=== PATIENT | female | born 1960 | race Hispanic/Latino ===

== ENCOUNTER 2017-06-24 10:33 | Inpatient (IN) | payer OTHER ==
[2017-06-24] MEDS ORDERED: Ondansetron HCl/PF 4 MG/2 ML Vial ONE (11:00)
--- NOTE | 2017-06-24 11:16 | RAD ---
SINGLE VIEW OF THE CHEST: COMPARISON: 10/19/14. HISTORY: Substernal chest pain with radiation to the left jaw. FINDINGS: Single view of the chest shows a normal sized cardiomediastinal silhouette. There is no evidence of consolidation, mass, or pleural effusion. The bones are unremarkable. IMPRESSION: No evidence of acute cardiopulmonary disease. POS: [facility]
[2017-06-24 11:34] LABS: #Eosinphils 0.1 thou/uL (0.0-0.7); #Lymphocytes 2.7 thou/uL (1.20-3.40); #Monocytes 0.4 thou/uL (0.11-0.59); #Neutrophils 3.2 thou/uL (1.40-6.50); %Basophils 0.7 % (0.0-1.0); %Eosinophils 1.2 % (0.0-10.0); %Lymphocytes 42.7 % (21.0-51.0); %Monocytes 5.7 % (0.0-10.0); Hematocrit 35.3 % (36.0-47.0); Red Blood Cell (RBC) Count 4.06 mill/uL (4.20-5.40); White Blood Cell (WBC) Count 6.4 thou/uL (4.8-10.8)
[2017-06-24 11:58] LABS: Troponin I Less than 0.010 ng/mL (< 0.028)
[2017-06-24 12:23] LABS: ALT (SGPT) 17 U/L (8-55); AST (SGOT) 21 U/L (5-34); Alkaline Phosphatase 95 U/L (40-150); Anion Gap 13 mmol/L (10-20); BUN (Urea Nitrogen) 16 mg/dL (9.8-20.1); Bilirubin, Total 0.2 mg/dL (0.2-1.2); CK (CPK) 177 U/L (29-168); Calc. Creatinine Clearance 0 mL/min (70-130); Calcium 8.9 mg/dL (7.8-10.44); Carbon Dioxide 23 mmol/L (22-29); Chloride 102 mmol/L (98-107); Estimated GFR-MDRD 85; Globulin 3.1 g/dL (2.4-3.5); Protein, Total 6.7 g/dL (6.0-8.3)
[2017-06-24 14:47] LABS: Troponin I Less than 0.010 ng/mL (< 0.028)
[2017-06-24] MEDS ORDERED: Enoxaparin Sodium 30 MG/0.3 ML SYRINGE ONE (15:02)
[2017-06-24] MEDS ORDERED: Enoxaparin Sodium 100 MG/ML SYRINGE ONE (15:02)
[2017-06-24] MEDS ORDERED: Nitroglycerin 2% Ointment 1 INCH/1 GM Packet ONE (15:05)
[2017-06-24] MEDS ORDERED: Dextrose 50% Abboject 50 ML SYRINGE SLOW IVP PRN (16:00)
[2017-06-24] MEDS ORDERED: Dextrose 5% in Water 1,000 ML IV PRN (16:00)
[2017-06-24] MEDS ORDERED: Nitroglycerin 0.4 MG TAB (25 Tab Bottle) SL PRN (16:00)
[2017-06-24] MEDS ORDERED: HumaLOG 300 UNITS/3 ML VIAL SC PRN (16:00)
[2017-06-24 16:03] VITALS: BMI 39.4
[2017-06-24 16:24] LABS: Hemoglobin A1c 8.8 % (4.0-6.0)
[2017-06-24 16:40] LABS: Magnesium 1.8 mg/dL (1.6-2.6)
[2017-06-24] MEDS: Sodium Chloride 0.9% 1,000 ML IV SCH (18:05)
[2017-06-24 18:15] LABS: Troponin I 0.011 ng/mL (< 0.028)
[2017-06-24] MEDS: Atorvastatin Calcium 40 MG TAB PO SCH (20:33)
[2017-06-24] MEDS: Enoxaparin Sodium 120 MG/0.8 ML SYRINGE SC SCH (20:49)
--- NOTE | 2017-06-24 21:37 | HP-2 ---
DATE: 06/24/2017 CODE STATUS: FULL. PRIMARY CARE PHYSICIAN: Liliana barrera. ATTENDING: Dr. Alfie Smith PGY1: Dr. Mauri Coulter CHIEF COMPLAINT: Chest pain. HISTORY OF PRESENT ILLNESS: A 57-year-old female who presents with chest pain that started around 5:30 this morning. The pain is in the middle of her chest and is substernal. She admits the pain radiated to her jaw and shoulder. She states that nitro helped this pain. She had cold sweats, shortness of breath and was awakened by this pain this morning. She had a similar episode in 2014 where she underwent cardiac studies then. She denied any numbness or tingling during this time. She denies any nausea, vomiting, diarrhea. She does admit to lightheadedness, but no loss of consciousness. She rates the pain as a 6/10 , constant and sharp in nature. She also notes some diaphoresis. In the ER, she was given nitro x3 and an aspirin 81 mg. PAST MEDICAL HISTORY: Significant for coronary artery disease, diabetes mellitus type 2, hypertension, hyperlipidemia, osteoarthritis. She had a last stress test in 2006 and an AL without stent placement in 1999. PAST SURGICAL HISTORY: Significant for cholecystectomy and angioplasty and debridement of her left hip. ALLERGIES: No known drug allergies. MEDICATIONS: 1. Metformin 1000 mg b.i.d. 2. Glipizide 10 mg. 3. Meloxicam 15 mg. 4. Hydrochlorothiazide 25 mg. 5. Lisinopril 20 mg. 6. Insulin NPH 35 units a.m. and then sliding scale in the evening. 7. Atorvastatin 40 mg. FAMILY HISTORY: Significant for her mother and her brother having MIs in her 70s and 50s respectively. SOCIAL HISTORY: She is a former tobacco smoker. She quit over 10 years ago and said she used social use of tobacco. She denied alcohol use or drug use. 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 REVIEW OF SYSTEMS: General: She denies any fevers or chills. ENT: Denies any nasal congestion, rhinorrhea, or sore throat. Respiratory: She denies cough or congestion. She does admit to shortness of breath. Cardiovascular: She does admit to chest pain. Denies any palpitations. Denies any edema. Gastrointestinal: She denies nausea, vomiting, diarrhea. Genitourinary: Denies incontinence or dysuria. Skin: She does admit to a rash on her right knee. Neurologic: She does admit to weakness. She denies numbness. Psychiatric: She denies anxiety or depression. PHYSICAL EXAMINATION: VITAL SIGNS: Blood pressure 107/79, pulse 80, respiration is 18, temperature max 98.6, pulse oximetry was 99% on room air. Current weight 113 kilograms. GENERAL: She is alert and oriented x4. She is appropriately interactive. EYES: PERRLA. ENT: Oropharynx within normal limits. CARDIOVASCULAR: Regular rate and rhythm without murmur. Radial and pedal pulses were equal and strong bilaterally. RESPIRATORY: Normal effort, no retractions, and clear lungs to auscultation bilaterally. SKIN: She does note she was diaphoretic. She did have a right knee and had some like annular lesions of her right knee area. ABDOMEN: Soft, nontender. Bowel sounds were present x4. No masses or distention. EXTREMITIES: No clubbing. No edema. MUSCULOSKELETAL: She did have tenderness lateral to her sternum on the left side. NEUROLOGIC: She did not have any focal neurologic deficits. Cranial nerves II- XII were grossly intact. GCS was 15. PSYCHIATRIC: Appropriate. LABORATORY DATA: She had a white blood cell count of 6.4, platelet count 223, hemoglobin of 11.6, hematocrit 35.3, MCV 86.9, percent neutrophils 49.7. CK 177 , CK-MB 3.7, troponin is less than 0.01. Sodium 134, potassium 4.3, chloride 107, bicarb 23, BUN 16, creatinine 0.71, glucose 267, calcium 8.9, total protein 6.7, albumin 3.6, total bilirubin 0.2, AST 21, ALT 17, alkaline phosphatase 95. EKG showed a right bundle branch block that was old, also normal sinus rhythm. Chest x-ray showed nothing acute. ASSESSMENT AND PLAN: We have a 57-year-old female that presents with a history of coronary artery disease, diabetes mellitus type 2, hypertension, hyperlipidemia, osteoarthritis, presents with: 1. Unstable angina. She had a HEART score of 4-5. We are going to order a BNP , TSH. We are going to trend her troponins. We will get a phosphate, magnesium , hemoglobin A1c, cardiac stress test, fasting lipid panel, therapeutic Lovenox , and a Cardiology consult. We will consider an echo because of history and to be as complete as possible. 2. Coronary artery disease. We will continue her statin and consider a beta yoshi. 3. Hypertension. Continue lisinopril. 4. Diabetes mellitus. We will get a hemoglobin A1c and continue her insulin, glipizide and metformin. 5. Hyperlipidemia. Continue statin. 6. Osteoarthritis. Continue meloxicam. DISPOSITION: Admit to tele inpatient greater than 2 midnights. Symptomatic medications will be provided. History and physical exam as well as management was discussed with Dr. Smith. Attending addendum: Seen and examined and maria portions of the H&P repeated. I have discussed the patient with the medicine team and agree with their A&P. For any addendum please see my dictated H&P. MTDD
--- NOTE | 2017-06-24 21:40 | HP ---
CHIEF COMPLAINT: Chest pain. HISTORY OF PRESENT ILLNESS: This is a 57-year-old female with a past history of coronary artery disease, hypertension, hyperlipidemia, diabetes, who presented with acute onset of chest pain that was left-sided, substernal, radiated to her left arm and neck with associated diaphoresis, worsening with exertion, better with rest and nitroglycerin and no associated nausea, vomiting. She described as severe, 10/10, initially that has improved after nitroglycerin here. This woke her from sleep. She has a history of feeling this way during an NV that she had in 2000, at which time she thinks she had a catheterization but does not really remember. She also has a history of catheterization in 2004 and 2006 per history I was able to obtain. Most recently seen here in 2014 where she had chest pain that was slightly different than what she described today with a negative Lexiscan at that time. REVIEW OF SYSTEMS: Constitutional: No fever or chills. Eyes: No pain or decreased acuity. Ears, Nose, Mouth, and Throat: No oral lesions, sore throat , decreased hearing. Cardiovascular: See HPI. Respiratory: No cough or congestion. Gastrointestinal: No nausea, vomiting, diarrhea, or constipation. Genitourinary: No dysuria or urgency. Musculoskeletal: No arthralgias or myalgias. Skin: Without rash or wound. Neurologic: Denies numbness, tingling, or weakness. Psychiatric: Denies depression or anxiety. Hematologic : Denies easy bruising or bleeding. PAST MEDICAL HISTORY: Positive for diabetes, hypertension, hyperlipidemia, coronary artery disease, and morbid obesity. PAST SURGICAL HISTORY: Cholecystectomy, , and coronary angiography x2. ALLERGIES: No known drug allergies. MEDICATIONS: Reviewed in detail in the resident's note. SOCIAL HISTORY: Denies tobacco, ethanol, or drug abuse but has a remote history of tobacco abuse over 10 years ago. FAMILY HISTORY: Positive for coronary artery disease with positive for less than 55 in a male relative. PHYSICAL EXAMINATION: VITAL SIGNS: T-max 98.3, pulse 95, BP 129/65, respirations 16, O2 sat 97%. GENERAL: The patient appears slightly uncomfortable. Well-developed, well- nourished, obese. HEENT: EYES: Without icterus or injection. ENT: No visible oral lesions. Moist mucous membranes. Pinna is normal. Nares patent. CARDIAC: Regular rate and rhythm without murmur, gallops, or rubs. Equal pulses bilaterally for me. No reproducible chest wall tenderness. No edema. RESPIRATORY: Clear to auscultation without wheezes, rales, or rhonchi. GASTROINTESTINAL: Bowel sounds positive. Nontender to palpation. Obese. GENITOURINARY: Deferred. MUSCULOSKELETAL: Without deformity or contracture. Full range of motion. SKIN: Without obvious wound or rash. NEUROLOGIC: Alert. Cranial nerves II through XII were intact and gross symmetric. Motor is 5/5 in all 4 extremities. Sensation is intact to light touch. PSYCHIATRIC: She is alert and oriented x3. Mood and affect appropriate for current medical condition. LABORATORY DATA: Sodium 134, potassium 4.3, chloride 102, bicarbonate 23, BUN 16, creatinine 0.75, glucose 267, total bilirubin 0.2, AST 21, ALT 17. CK 177. Troponin x2 less than 0.01. CBC with a white count of 6.4, hemoglobin 11.6, and platelets 223. Chest x-ray demonstrated no acute cardiopulmonary process. ASSESSMENT AND PLAN: This is a 57-year-old female with: 1. Unstable angina. We will go ahead and give aspirin, beta yoshi, MARBELLA inhibitor, high intensity statin, and therapeutic Lovenox as well as p.r.n. nitroglycerin and consult Cardiology for either early intervention or stress angiography. 2. Hypertension. Continue home medication. 3. Hyperlipidemia. Continue statin. 4. Diabetes. I will likely switch to a sliding scale insulin here and then see if we need to send her home on long-term. 5. Hyponatremia. Unsure etiology. We will check electrolytes. 6. Elevated CK. We will trend repeat in the morning. 7. Syncope which she reported towards the end of the exam. We will go ahead and order a TTE. 8. Gastrointestinal prophylaxis, she will be n.p.o. for now, begin diet subsequently. Deep venous thrombosis prophylaxis, she is currently on therapeutic Lovenox. ANKITA
[2017-06-24] MEDS ORDERED: Nystatin Powder 15 GM BOT TOP PRN (22:23)
[2017-06-24] MEDS ORDERED: Lidocaine 2% Viscous Solution 20 ML, Aluminum & Magnesium Hydroxide 30 ML, Donnatal Eli... SSW SCH ×6 (22:30→23:15)
[2017-06-24] MEDS ORDERED: Metoprolol Tartrate 5 MG/5 ML VIAL IVP PRN ×2 (22:32→23:14)
--- NOTE | 2017-06-24 22:34 | CON ---
DATE OF CONSULTATION: 06/24/2017 REASON FOR CONSULTATION: Chest pain. HISTORY OF PRESENT ILLNESS: Ms. Anaya is a 57-year-old female who has been seen in the past by Dr. Hernandez. She had angioplasty many years ago, but no stenting. She has been lost to follow up since her heart catheterization and intervention, and presents with a history of awakening from sleep with crushing substernal chest pain and diaphoresis with associated dyspnea. It radiate d into her upper sternum and lower jaw and worsened over the course of the morning with increased ac tivity. She presented and administered nitroglycerin, did improve her symptoms. She is currently c hest pain free and serial enzymes thus far show no evidence of overt injury. PAST MEDICAL HISTORY: Significant for: 1. Coronary artery disease with history of angioplasty. She denies stenting. This was done remote ly. 2. Hypertension. 3. Type 2 diabetes mellitus. 4. Dyslipidemia. 5. Morbid obesity. PAST SURGICAL HISTORY: 1. . 2. Heart catheterization with percutaneous coronary intervention/angioplasty. 3. Cholecystectomy. ALLERGIES: No known drug allergies. SOCIAL HISTORY: She denies alcohol use or illicit drug use. She denies tobacco use history. FAMILY HISTORY: Negative with respect to premature atherosclerosis. MEDICATIONS: At home include: 1. Lipitor 40 mg daily. 2. Glipizide 20 mg b.i.d. 3. Aspirin 81 mg daily. 4. Fluconazole 200 mg daily every 3 days. 5. Metformin 1000 mg b.i.d. 6. Humulin R sliding scale q. a.c. 7. Hydrochlorothiazide 25 mg daily. 8. Prevacid 30 mg daily. 9. Lisinopril 2.5 mg daily. 10. Meloxicam 7.5 mg daily. REVIEW OF SYSTEMS: As per the history of present illness, remainder of 12-system review is negative . PHYSICAL EXAMINATION: VITAL SIGNS: Blood pressure 120/55, pulse 80 and regular, respiratory rate 18 and nonlabored, tempe rature 98.0, oxygen saturation 96% on room air. GENERAL: This is a well-developed, morbidly obese 57-year-old female, in no acute distres s. She is alert and oriented x4. She answers questions appropriately. HEENT: Head is atraumatic, normocephalic. Pupils are equally round and reactive. Sclerae and conj unctivae are clear. There are no oral lesions. NECK: Supple, no JVD, thyromegaly, carotid bruits. CHEST: Symmetrical inspiration and expiration. HEART: Regular rate and rhythm. No murmur, S3 or S4. PMI is nondisplaced. Not enlarged. LUNGS: Clear to auscultation in all ruano. No adventitious sounds appreciated. ABDOMEN: Soft, nontender, nondistended, without mass or organomegaly. Bowel sounds are present in all 4 quadrants. No flank bruits auscultated. EXTREMITIES: 2+ pulses noted bilaterally. Upper and lower extremity strength 5/5 bilaterally. No clubbing, cyanosis or edema. NEUROLOGIC: Grossly intact. No focal motor deficits appreciated. DATABASE: EKG reveals sinus rhythm with nonspecific T changes. LABORATORY DATA: CBC reveals a white count of 6, H\T\H 11 and 35, platelet count 223,000. Differen tial white blood cells normal. Red cell indices, normocytic. Chemistries: Electrolytes are normal. BUN and creatinine 16 and 0.7. GFR is estimated at 85, gluc ose 267, A1c is 8.8. LFTs are normal. CK is 177 with an MB fraction of 3.7, troponin is less than 0.010 with 2 successive draws. BNP is normal. TSH 2.2. ASSESSMENTS: 1. Unstable angina pectoris. 2. Known coronary artery disease with a remote history of angioplasty. 3. Hypertension, controlled. 4. Dyslipidemia, on therapy. 5. Type 2 diabetes mellitus, uncontrolled, on oral agents plus insulin. 6. Morbid obesity. RECOMMENDATIONS: 1. From a cardiac standpoint, she is stable currently and symptom free. She will be scheduled for heart catheterization with Dr. Hernandez tomorrow and he will assume care upon arrival to work [facility]. We will continue with medical management, is currently initiated. She is on full dose Lovenox currently and continue other routine medicines plus nitrates. 2. Recommendations will be made based on the results of her heart catheterization. I appreciate the opportunity to participate.
[2017-06-24] MEDS ORDERED: Enoxaparin Sodium 120 MG/0.8 ML SYRINGE SC SCH (23:00)
[2017-06-24 23:20] LABS: Troponin I Less than 0.010 ng/mL (< 0.028)
--- NOTE | 2017-06-25 | PDOC.EVN ---
Event Note - Event Note Event Note: Nip Wrapper paged approx 8:20pm for 05/09 substernal chest pain a/w SOB & diaphoresis. Nitro given SL per order which brought pain down to 5/10. Dr. Quintero ordered stat EKG. I reviewed the EKG at approx 9:20pm and it showed no new ischemic changes. NSR. Went to eval pt and mild substernal TTP, but otherwise normal exam. 4mg Morphine ordered IV. Ordered stat troponins as well. Normal troponins noted previously. Dr. Quintero paged approx 10:00pm and pts pain now down to 3/10. Will monitor closely overnight. May try beta-yoshi if pain persists. If unable to control, will move pt to CCU and place on nitro gtt.
[2017-06-25] MEDS: Sodium Chloride 0.9% 1,000 ML IV SCH ×3 (01:00→16:00)
[2017-06-25 05:12] LABS: Anion Gap 10 mmol/L (10-20); BUN (Urea Nitrogen) 12 mg/dL (9.8-20.1); Calc. Creatinine Clearance 161 mL/min (70-130); Calcium 8.6 mg/dL (7.8-10.44); Carbon Dioxide 26 mmol/L (22-29); Chloride 103 mmol/L (98-107); Cholesterol 175 mg/dl (< 200 Desired); Estimated GFR-MDRD Greater than 90; LDL Cholesterol, Calculated 99 mg/dL
[2017-06-25] MEDS: glipiZIDE 10 MG TAB PO SCH (07:30)
--- NOTE | 2017-06-25 07:55 | PDOC.FM ---
- Subjective Subjective: Patient is resting comfortably this morning. She had an episode of chest pain last night that didn't resolve with Nitro, but did with Morphine. She denies chest pain or sob this morning. She denies n/v/d or cough this morning. She is going to get a cath this morning. - Objective Vital Signs & Weight: Vital Signs (12 hours) Temp Pulse Resp BP BP Pulse Ox 06/25/17 04:00 98.5 F 83 14 117/58 L 93 L 06/24/17 23:47 98.4 F 74 14 119/58 L 96 06/24/17 22:33 96 06/24/17 20:30 97.9 F 77 14 Weight Weight 107.501 kg I&O: 06/24/17 06/25/17 06/26/17 06:59 06:59 06:59 Intake Total 1633 Output Total 600 Balance 1033 Result Diagrams: 06/24/17 11:18 06/25/17 04:17 <Mauri Coulter - Last Filed: 06/25/17 11:23> - Objective Vital Signs & Weight: Vital Signs (12 hours) Temp Pulse Resp BP BP BP Pulse Ox 06/25/17 09:41 130/58 L 06/25/17 07:43 97.7 F 73 16 130/58 L 97 06/25/17 07:37 97.7 F 73 16 97 06/25/17 04:00 98.5 F 83 14 117/58 L 93 L 06/24/17 23:47 98.4 F 74 14 119/58 L 96 Weight Weight 107.501 kg I&O: 06/24/17 06/25/17 06/26/17 06:59 06:59 06:59 Intake Total 1633 Output Total 600 850 Balance 1033 -850 Result Diagrams: 06/24/17 11:18 06/25/17 04:17 <Elliott Goldsmith - Last Filed: 06/25/17 11:31> Phys Exam - Physical Examination HEENT: moist MMs Neck: no nodes Respiratory: no wheezing, clear to auscultation bilateral Cardiovascular: RRR, no significant murmur Gastrointestinal: soft, non-tender, positive bowel sounds Musculoskeletal: no edema, pulses present Neurological: non-focal, normal sensation, moves all 4 limbs Psychiatric: normal affect, A&O x 3 Deviation from normal: Rash on Right knee area <Mauri Coulter - Last Filed: 06/25/17 11:23> Dx/Plan (1) Unstable angina pectoris Status: Acute Plan: -Continue Nitro as needed for pain -Continue Aspirin -Continue Statin -Await cath results (2) Diabetes mellitus Code(s): E11.9 - TYPE 2 DIABETES MELLITUS WITHOUT COMPLICATIONS Status: Acute Plan: Continue home insulin Continue metformin Continue glipizide (3) Hypertension Code(s): I10 - ESSENTIAL (PRIMARY) HYPERTENSION Status: Acute Plan: Continue Lisinopril Continue HCTZ - Plan Plan: Patient will go to have a cath this morning with Cardiology. Will await those results. <Mauri Coulter - Last Filed: 06/25/17 11:23> Attending Addendum - Attending Addendum I personally evaluated the patient and discussed the management with Dr. Coulter. I agree with the History, Examination, Assessment and Plan documented above with any addition or exceptions noted below. Patient going for heart cath this morning with her [employer] consultant. Has history of CAD with no recent follow up. She had another episode of chest pain last night that sounds typical in nature. No evidence of cardiac damage as no EKG changes and no bump in enzymes. However, patient has been on . lovenox. Await cath report and further recs from cardiology. Will need to maximize medical therapy as well. Dispo pending cardiology recommendations. <Elliott Goldsmith - Last Filed: 06/25/17 11:31>
[2017-06-25] MEDS ORDERED: NPH, Human Insulin Isophane 300 UNIT/3 ML VIAL SC SCH (09:00)
[2017-06-25] MEDS ORDERED: Ketoconazole 2% Cream 15 gm Tube TOP SCH (09:00)
[2017-06-25] MEDS ORDERED: Enoxaparin Sodium 120 MG/0.8 ML SYRINGE SC SCH (09:00)
[2017-06-25] MEDS: Enoxaparin Sodium 120 MG/0.8 ML SYRINGE SC SCH ×2 (09:36→22:56)
[2017-06-25] MEDS: Hydrochlorothiazide 25 MG TAB PO SCH (09:41)
[2017-06-25] MEDS: Lisinopril 20 MG TAB PO SCH (09:41)
[2017-06-25] MEDS: Aspirin 81 mg Enteric Coated Tablet PO SCH (09:41)
[2017-06-25] MEDS: Ketoconazole 2% Cream 15 gm Tube TOP SCH ×2 (09:41→14:51)
[2017-06-25] MEDS ORDERED: Heparin 10,000 UNITS/1 ML VIAL ONE (10:01)
[2017-06-25] MEDS ORDERED: Nitroglycerin 100MG/250ML BOT 250 ML ONE (10:01)
--- NOTE | 2017-06-25 10:01 | EKG ---
Test Reason : Blood Pressure : / mmHG Vent. Rate : 081 BPM Atrial Rate : 081 BPM P-R Int : 170 ms QRS Dur : 112 ms QT Int : 430 ms P-R-T Axes : 017 021 -05 degrees QTc Int : 499 ms Normal sinus rhythm Incomplete right bundle branch block Prolonged QT Abnormal ECG When compared with ECG of 14-JUN-2006 11:38, T wave inversion now evident in Inferior leads Confirmed by SUYAPA SOTO ([id number]) on 06/25/2017 10:01:23 AM Referred By: CRISTAL Confirmed By:SUYAPA SOTO
[2017-06-25] MEDS ORDERED: Fentanyl 100 MCG/2 ML VIAL ONE (10:36)
[2017-06-25] MEDS ORDERED: Midazolam HCl 2 mg/2 ml Vial ONE (10:36)
[2017-06-25] MEDS ORDERED: Iopamidol 370 76% 100 ML VIAL ONE (17:16)
[2017-06-25] MEDS: Atorvastatin Calcium 40 MG TAB PO SCH (21:31)
--- NOTE | 2017-06-26 06:43 | PDOC.FM ---
- Subjective Subjective: Patient had a good night. She states she did not have any chest pain over night. She states she is no longer having the same sweating episodes she had before. She denies sob, n/v/d. She denies fever or chills. She denies abdominal pain. - Objective Vital Signs & Weight: Vital Signs (12 hours) Temp Pulse Resp BP Pulse Ox 06/26/17 04:10 97.4 F L 74 18 106/56 L 96 06/25/17 19:50 98.6 F 79 18 98 Weight Weight 111.674 kg I&O: 06/24/17 06/25/17 06/26/17 06:59 06:59 06:59 Intake Total 1633 1983 Output Total 600 3200 Balance 1033 -1216 Result Diagrams: 06/24/17 11:18 06/25/17 04:17 <Mauri Coulter - Last Filed: 06/26/17 08:44> - Objective Vital Signs & Weight: Vital Signs (12 hours) Temp Pulse Resp BP BP Pulse Ox 06/26/17 09:12 106/56 L 06/26/17 07:39 99 F 77 16 98 06/26/17 07:32 99 F 77 16 98 06/26/17 04:10 97.4 F L 74 18 106/56 L 96 Weight Weight 111.674 kg I&O: 06/25/17 06/26/17 06/27/17 06:59 06:59 06:59 Intake Total 1633 1983 Output Total 600 3200 Balance 1033 -1216 Result Diagrams: 06/24/17 11:18 06/25/17 04:17 <Elliott Goldsmith - Last Filed: 06/26/17 12:02> Phys Exam - Physical Examination HEENT: PERRLA, moist MMs Neck: no nodes, supple Respiratory: no wheezing, clear to auscultation bilateral Cardiovascular: RRR, no significant murmur Gastrointestinal: soft, non-tender, no distention, positive bowel sounds Musculoskeletal: no edema, pulses present Neurological: non-focal, moves all 4 limbs Psychiatric: normal affect, A&O x 3 <Mauri Coulter - Last Filed: 06/26/17 08:44> Dx/Plan (1) Atypical chest pain Code(s): R07.89 - OTHER CHEST PAIN Status: Resolved Plan: -Patient worked up for unstable angina. Pain is now resolved. -Negative cath results -Dr. Webster recommends maximize medical management which patient is already on. He recommended to work up other non cardiac causes of chest pain in the future. -Patient will be discharged today. (2) Diabetes mellitus Code(s): E11.9 - TYPE 2 DIABETES MELLITUS WITHOUT COMPLICATIONS Status: Acute Plan: Patient counseled on diet and exercise. Continue home insulin Continue metformin Continue glipizide (3) Hypertension Code(s): I10 - ESSENTIAL (PRIMARY) HYPERTENSION Status: Acute Plan: Continue Lisinopril Continue HCTZ - Plan Plan: Patient will be discharged today after cardiology recs are known. <Mauri Coulter - Last Filed: 06/26/17 08:44> Attending Addendum - Attending Addendum I personally evaluated the patient and discussed the management with Dr. Coulter. I agree with the History, Examination, Assessment and Plan documented above with any addition or exceptions noted below. Patient doing well after cath and has no further complaints of chest pain. Will discharge today with medications to control risk factors. <Elliott Goldsmith - Last Filed: 06/26/17 12:02>
[2017-06-26] MEDS: glipiZIDE 10 MG TAB PO SCH (07:36)
[2017-06-26] MEDS: Lisinopril 20 MG TAB PO SCH (09:12)
[2017-06-26] MEDS: Hydrochlorothiazide 25 MG TAB PO SCH (09:12)
[2017-06-26] MEDS: Aspirin 81 mg Enteric Coated Tablet PO SCH (09:12)
[2017-06-26] MEDS: Ketoconazole 2% Cream 15 gm Tube TOP SCH (09:13)
[2017-06-26] MEDS: Enoxaparin Sodium 120 MG/0.8 ML SYRINGE SC SCH (09:14)
--- NOTE | 2017-06-26 11:58 | DIS-2 ---
DATE OF ADMISSION: 06/24/2017 DATE OF DISCHARGE: 06/26/2017 RESIDENT: Dr. Mauri Coulter. ADMITTING ATTENDING: Dr. Smith. DISCHARGE ATTENDING: Elliott Goldsmith M.D. CONSULTS: Cardiology. PROCEDURE: Cardiac catheterization. DISCHARGE MEDICATIONS: Aspirin 81 mg, simvastatin 20 mg, omeprazole 40 mg, lisinopril 20 mg, metformin 1000 mg, hydrochlorothiazide 25 mg, meloxicam 15 mg , insulin regular 2 units subcutaneous at bedtime, NPH 5 units subcutaneous at bedtime, NPH 35 units subcutaneous daily, glipizide 10 mg b.i.d. DISCONTINUE MEDICATIONS: None. HISTORY OF PRESENT ILLNESS AND HOSPITAL COURSE: This is a 57-year-old female who presents with the chest pain that started on 5:30 a.m. The pain is in the middle of her chest in the substernal. She admits the pain radiated to her jaw and shoulder. She states the nitro helped with this pain. She had cold sweats , shortness of breath and was awakened by this pain this morning. She had similar episode in 2014 where she underwent cardiac studies then. She denied any numbness or tingling during this time. She denies any nausea, vomiting, diarrhea. She does admit to lightheadedness, but no loss of consciousness. She rates the pain as 6/10, constant and sharp in nature. She also notes some diaphoresis. In the ER, she was given nitro x3 and aspirin 81 mg. During her hospitalization, she went for cardiac catheterization. Catheterization came back as negative. Normal ventricular function. The Nurse Case Manager, Dr. Webster, we appreciate his input on this and he had no further recommendations. He said to maximize medical management, which she is on currently. If symptoms do persists , he recommended that look into noncardiac causes of her chest pain. Some notable labs, her hemoglobin A1c is 8.8. She had troponins less than 0.01 x3 and her triglycerides were 169, cholesterol was 175, LDL was 99, HDL was 42, heart ratio was 4.2. Her ASCVD risk is 7%. She is on optimal therapy for her risk stratification.. She improved and no longer had any chest pain. She was discharged in appropriate condition. DISPOSITION: Stable. DISCHARGE INSTRUCTIONS: 1. Location: She will be discharged from the hospital, she was on a furlough from [facility], so she will likely return there. 2. Diet will be heart healthy and a diabetic diet. 3. Activity will be as tolerated without any restrictions 4. Followup will be within the [facility] system. 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 We wish her the best of luck and she will need some followup for her diabetes management as well as her heart disease management. ANKITA
[2017-06-26 12:31] VITALS: BP 123/64; TEMP 97.4
== END 2017-06-26 14:25 | DRG 287 ==
LOC: ERS 10:33 → OBSVTOIN 13:47 → 2SW 13:47 → 2NO 06-25 19:19
PROVIDERS: ADMIT Family Medicine; ATTEND Family Medicine
PROC: 4A023N7 Measurement of Cardiac Sampling and Pressure, Left Heart, Percutaneous Approach (ICD-10-PCS; principal; 2017-06-25)
PROC: B2111ZZ Fluoroscopy of Multiple Coronary Arteries using Low Osmolar Contrast (ICD-10-PCS; 2017-06-25)
DX: I25.110 Atherosclerotic heart disease of native coronary artery with unstable angina pectoris (principal); E87.1 Hypo-osmolality and hyponatremia; I10 Essential (primary) hypertension; Z68.41 Body mass index [BMI] 40.0-44.9, adult; E78.5 Hyperlipidemia, unspecified; E66.01 Morbid (severe) obesity due to excess calories; M19.90 Unspecified osteoarthritis, unspecified site; I25.2 Old myocardial infarction; Z87.891 Personal history of nicotine dependence; Z82.49 Family history of ischemic heart disease and other diseases of the circulatory system
CPT/HCPCS: 36415; 36416; 71010; 80048; 80053; 80061; 82550; 82553; 83036; 83735; 83880; 84100; 84443; 84484; 85025; 93005; 93010; 93458; 94760; 96372; 96374; 96375; 99152; 99153; A4216; C1769; J1644; J1650; J1815; J2250; J2270; J2405; J3010

== ENCOUNTER 2017-12-13 09:43 | Emergency (ER) | payer OTHER ==
[2017-12-13 10:15] LABS: #Basophils 0.1 thou/uL (0.0-0.2); #Eosinphils 0.1 thou/uL (0.0-0.7); #Lymphocytes 2.3 thou/uL (1.20-3.40); #Monocytes 0.5 thou/uL (0.11-0.59); %Basophils 0.9 % (0.0-1.0); %Eosinophils 1.4 % (0.0-10.0); %Lymphocytes 33.6 % (21.0-51.0); %Monocytes 6.9 % (0.0-10.0); %Neutrophils 57.2 % (42.0-75.0); Hemoglobin 11.1 g/dL (12.0-16.0); Mean Corpuscular HGB CONC 33.4 g/dL (32.0-36.0); Mean Corpuscular Hemoglobin 28.5 pg (27.0-31.0); Mean Corpuscular Volume 85.5 fl (81.0-99.0); Mean Platelet Volume 7.6 fL (7.4-10.4); Platelet Count 246 thou/uL (130-400); RBC Distribution Width 13.3 % (11.5-14.5); Red Blood Cell (RBC) Count 3.88 mill/uL (4.20-5.40)
--- NOTE | 2017-12-13 10:20 | RAD ---
CHEST 1 VIEW: Date: 12/13/17 HISTORY: Chest pain. COMPARISON: 06/24/17. FINDINGS: Cardiac silhouette is magnified by projection. Pulmonary vasculature is unremarkable. Mediastinum is midline. There is no confluent air space consolidation or evidence of pneumothorax. IMPRESSION: No active cardiopulmonary abnormalities are demonstrated. POS: [facility]
[2017-12-13 10:38] LABS: Troponin I Less than 0.010 ng/mL (< 0.028)
[2017-12-13 10:52] LABS: ALT (SGPT) 15 U/L (8-55); AST (SGOT) 20 U/L (5-34); Albumin 3.8 g/dL (3.5-5.0); Alkaline Phosphatase 83 U/L (40-150); Anion Gap 10 mmol/L (10-20); BUN (Urea Nitrogen) 17 mg/dL (9.8-20.1); Bilirubin, Total 0.2 mg/dL (0.2-1.2); Calc. Creatinine Clearance 0 mL/min (70-130); Calcium 9.1 mg/dL (7.8-10.44); Carbon Dioxide 26 mmol/L (22-29); Chloride 103 mmol/L (98-107); Estimated GFR-MDRD 84; Glucose 190 mg/dL (70-105); Potassium 4.7 mmol/L (3.5-5.1); Protein, Total 6.8 g/dL (6.0-8.3); Sodium 134 mmol/L (136-145)
[2017-12-13 12:53] LABS: Troponin I Less than 0.010 ng/mL (< 0.028)
[2017-12-13] MEDS ORDERED: Ketorolac Tromethamine 30 MG/ML VIAL ONE (13:18)
== END 2017-12-13 13:45 ==
LOC: ERS 09:43
DX: R07.9 Chest pain, unspecified (principal); E11.9 Type 2 diabetes mellitus without complications; I25.2 Old myocardial infarction; E78.5 Hyperlipidemia, unspecified; E78.2 Mixed hyperlipidemia; I10 Essential (primary) hypertension; Z79.899 Other long term (current) drug therapy; Z79.82 Long term (current) use of aspirin; Z79.4 Long term (current) use of insulin
CPT/HCPCS: 36415; 71045; 80053; 82550; 82553; 84484; 85025; 93005; 96374; J1885

== ENCOUNTER 2018-03-31 08:21 | Outpatient (CLI) | payer OTHER | END 2018-03-31 08:22 | disposition home or self-care (01) | LOC: BICMRI 08:21 | PROVIDERS: ATTEND Family Medicine | DX: M17.11 Unilateral primary osteoarthritis, right knee (principal); M79.661 Pain in right lower leg; M51.16 Intervertebral disc disorders with radiculopathy, lumbar region; M47.26 Other spondylosis with radiculopathy, lumbar region | CPT/HCPCS: 72148 ==

== ENCOUNTER 2018-10-22 12:08 | Outpatient (CLI) | payer OTHER ==
--- NOTE | 2018-10-22 17:04 | MRI ---
MRI CERVICAL SPINE: 10/22/18 HISTORY: Patient with possible cervical spine stenosis, cervical myelopathy, radiculopathy. Multiplanar and multisequence noncontrast enhanced MRI images cervical spine obtained. RADIOGRAPHIC FINDINGS: Images demonstrate motion artifact seen. No definite evidence of cervical spine cord pathology or mas ses or lesions seen. C1-2: Unremarkable. C2-3: Unremarkable. C3-4: There is a mild broad based disc osteophyte complex centrally compressing the thecal sac result ing in moderate degree of central stenosis. The neural foramen are patent. C4-5: Broad based disc osteophyte complex seen centrally compressing the thecal sac resulting in mode rate degree of central stenosis. No evidence of cord compression seen. The neural foramen are patent. C5-6: There is a broad based disc osteophyte complex compressing the thecal sac resulting in mild com pression of the spinal cord. The neural foramen are patent. C6-7: there is a broad based disc osteophyte complex centrally compressing the thecal sac resulting i n mild degree of central and moderate paracentral spinal stenosis. No significant degree of neural fo raminal narrowing seen. C7-T1: Unremarkable. IMPRESSION: Broad based disc osteophyte complexes with compression of the thecal sac and moderate central stenosi s at C3-4, C4-5, C5-6, and lesser degree at C6-7. POS: BRIANNA
== END 2018-10-22 12:09 | disposition home or self-care (01) ==
LOC: BICMRI 12:08
PROVIDERS: ATTEND Family Medicine
DX: M54.12 Radiculopathy, cervical region (principal); M48.02 Spinal stenosis, cervical region
CPT/HCPCS: 72141

== ENCOUNTER 2018-12-24 09:42 | Observation (INO) | payer OTHER ==
[2018-12-24] MEDS ORDERED: Aspirin Chewable 81 MG TAB ONE (10:09)
[2018-12-24 10:23] LABS: #Eosinphils 0.1 thou/uL (0.0-0.7); #Lymphocytes 2.2 thou/uL (1.20-3.40); #Monocytes 0.4 thou/uL (0.11-0.59); #Neutrophils 4.8 thou/uL (1.40-6.50); %Basophils 0.6 % (0.0-1.0); %Eosinophils 1.2 % (0.0-10.0); %Lymphocytes 29.7 % (21.0-51.0); %Monocytes 4.7 % (0.0-10.0); %Neutrophils 63.8 % (42.0-75.0); Hemoglobin 10.4 g/dL (12.0-16.0); Mean Corpuscular HGB CONC 32.9 g/dL (32.0-36.0); Mean Corpuscular Hemoglobin 26.6 pg (27.0-31.0); Mean Corpuscular Volume 80.7 fL (78.0-98.0); Mean Platelet Volume 8.6 fL (7.4-10.4); Platelet Count 225 thou/uL (130-400); RBC Distribution Width 14.7 % (11.5-14.5); Red Blood Cell (RBC) Count 3.93 mill/uL (4.20-5.40); White Blood Cell (WBC) Count 7.5 thou/uL (4.8-10.8)
--- NOTE | 2018-12-24 10:44 | RAD ---
FChest AP view INDICATION: Chest pain COMPARISON: December 13, 2017 FINDINGS: The lungs are clear. The heart size is normal. No pleural effusion or pneumothorax is evide nt. No acute osseous abnormality is noted. IMPRESSION: No acute cardiopulmonary abnormality.
[2018-12-24 10:45] LABS: ALT (SGPT) 16 U/L (8-55); AST (SGOT) 21 U/L (5-34); Albumin 3.6 g/dL (3.5-5.0); Alkaline Phosphatase 83 U/L (40-150); Anion Gap 12 mmol/L (10-20); BUN (Urea Nitrogen) 15 mg/dL (9.8-20.1); Bilirubin, Total 0.4 mg/dL (0.2-1.2); Calc. Creatinine Clearance 0 mL/min (70-130); Calcium 8.9 mg/dL (7.8-10.44); Carbon Dioxide 24 mmol/L (22-29); Chloride 100 mmol/L (98-107); Estimated GFR-MDRD 76; Globulin 3.3 g/dL (2.4-3.5); Glucose 315 mg/dL (70-105); Potassium 4.5 mmol/L (3.5-5.1); Protein, Total 6.9 g/dL (6.0-8.3); Sodium 131 mmol/L (136-145)
--- NOTE | 2018-12-24 12:34 | PDOC.FPRHP ---
- History of Present Illness Chief Complaint: chest pain History of Present Illness: 58 yr old female with hx of CAD who presents with chest pain that comes and goes at rest and sometimes while walking. It only lasts seconds and then it comes back randomly. This chest pain has been occurring for about 2 weeks and at that time patient has also noticed that when she walks she gets breathless easily and even lightheaded and dizzy and sweaty. States this has progressively worsened over last couple weeks. Denies nausea with the pain. She also reports leg swelling a week ago but is better today. States last night she was awoken from sleep with the chest pain, was sweating, and felt short of breath. Sitting up on side of bed and fanning herself seemed to make it better. 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 Had a cold last week but still has some coughing and phlegm. She was treated with macrobid for a UTI last week. Still having burning with urination. 2 days ago, she was started on indomethacin for right knee swelling. States the knee is hurting and she can barely walk. Risk factors: She reports a history of MS in [place] in 1999. They did a cath at that time but did not place stents. Smoking history- quit in 2000. Smoked on occasion but not daily and pack of cigarettes lasted about a week. Mom- MS at age 50's Brother- MS in late 50's HLD and HTN and DM. ED Course: Aspirin 325 mg - Allergies/Adverse Reactions Allergies Allergy/AdvReac Type Severity Reaction Status Date / Time No Known Allergies Allergy Verified 12/24/18 17:02 - Home Medications Medication Instructions Recorded Confirmed Type Aspirin [Children's Aspirin] 81 mg PO DAILY 10/19/14 12/24/18 History Hydrochlorothiazide 25 mg PO DAILY 10/19/14 12/24/18 History Lisinopril [Zestril] 20 mg PO DAILY 10/19/14 12/24/18 History Omeprazole [Prilosec] 40 mg PO DAILY 10/19/14 12/24/18 History metFORMIN HCl 1,000 mg PO BID-WM 10/19/14 12/24/18 History glipiZIDE [Glucotrol Xl] 10 mg PO BID 06/24/17 12/24/18 History Atorvastatin Calcium 40 mg PO HS 12/24/18 12/24/18 History Indomethacin 50 mg PO DAILY 12/24/18 12/24/18 History Insulin Glargine,Hum.Rec.Anlog 35 units SC QAM 12/24/18 12/24/18 History [Lantus] Lactulose 10 GM/15ML Oral Carol 10 ml PO DAILY PRN 12/24/18 12/24/18 History [Lactulose] Lactulose 10 GM/15ML Oral Carol 15 - 30 ml PO HS 12/24/18 12/24/18 History [Lactulose] Metoprolol Tartrate 50 mg PO BID 12/24/18 12/24/18 History - History PMHx: HTN, HLD, MS without stent placement, IDDM, morbid obesity. Says she had her MS after having a UTI and then woke up in the hospital with MS. PSHx: x 4, Cholescystectomy, 3 heart caths FHx: Mom- MS, DM, HTN, HLD, breast cancer. Brother- leukemia, MS. maternal grandmother- MS. Social: Social drinker in the past, none currently. She has been in the [facility] since 2003. She has a remote smoking history for about 6 yeas maybe 1 pack a week. Occasional drug use prior to 2003- no IV drugs. She used to be a tank truck driver. - Review of Systems General: reports: fever/chills. denies: weight/appetite/sleep changes, night sweats Eyes: denies: eye pain, vision changes ENT: denies: nasal congestion, rhinorrhea Respiratory: reports: cough Cardiovascular: reports: chest pain, paroxysmal nocturnal dyspnea, orthopnea. denies: edema Gastrointestinal: denies: nausea, vomiting, diarrhea, constipation Genitourinary: reports: dysuria, other (urinary retention due to back problems, feels the urge but can't go). denies: polyuria Skin: denies: rashes, lesions, jaundice Musculoskeletal: reports: pain (neck, shoulders, back- has been told she has 2 pinched nerves in her neck. Also L4-5 are "messed up."), arthritis/arthralgias. denies: stiffness Neurological: reports: numbness (down her legs when back pain is severe). denies: syncope, seizure Psychological: denies: anxiety, depression - Vital signs BP: [153/84] HR: [77] RR: [16] Tmax: [99.1] Pox: [98]% on [RA] Wt: [114 kg] - Physical Exam Constitutional: NAD, awake, alert and oriented, well developed HEENT: normocephalic and atraumatic Neck: supple, trachea midline, no JVD Chest: no-tender to palpation Heart: RRR, normal S1/S2, no murmurs/rubs/gallops Lungs: CTAB, no respiratory distress, good air movement, no rales/rhonchi, no wheezing Abdomen: soft, no masses/distention Neurological: no focal deficit, CN II-XII intact, other (bilateral medial thigh numbness) Skin: no rash/lesions, capillary refill <2 seconds Heme/Lymphatic: no unusual bruising or bleeding Psychiatric: good judgment and insight, intact recent and remote memory FMR H&P: Results - Labs Result Diagrams: 12/24/18 10:06 12/24/18 10:06 Lab results: WBC 7.5 thou/uL (4.8-10.8) 12/24/18 10:06 Hgb 10.4 g/dL (12.0-16.0) L 12/24/18 10:06 Hct 31.7 % (36.0-47.0) L 12/24/18 10:06 MCV 80.7 fL (78.0-98.0) 12/24/18 10:06 Plt Count 225 thou/uL (130-400) 12/24/18 10:06 Neutrophils % 63.8 % (42.0-75.0) 12/24/18 10:06 Sodium 131 mmol/L (136-145) L 12/24/18 10:06 Potassium 4.5 mmol/L (3.5-5.1) 12/24/18 10:06 Chloride 100 mmol/L (98-107) 12/24/18 10:06 Carbon Dioxide 24 mmol/L (22-29) 12/24/18 10:06 BUN 15 mg/dL (9.8-20.1) 12/24/18 10:06 Creatinine 0.78 mg/dL (0.6-1.1) 12/24/18 10:06 Glucose 315 mg/dL (70-105) H 12/24/18 10:06 Calcium 8.9 mg/dL (7.8-10.44) 12/24/18 10:06 Total Bilirubin 0.4 mg/dL (0.2-1.2) 12/24/18 10:06 AST 21 U/L (5-34) 12/24/18 10:06 ALT 16 U/L (8-55) 12/24/18 10:06 Alkaline Phosphatase 83 U/L (40-150) 12/24/18 10:06 Serum Total Protein 6.9 g/dL (6.0-8.3) 12/24/18 10:06 Albumin 3.6 g/dL (3.5-5.0) 12/24/18 10:06 Laboratory Tests 12/24/18 12/24/18 12/24/18 10:06 10:06 14:00 D-Dimer 0.40 Troponin I Less than 0.010 Urine Glucose (UA) 500 H Urine Blood Negative Urine Nitrite Negative Ur Leukocyte Esterase Negative - EKG Interpretation EKG: EKG: normal sinus rhythm, incomplete right bundle branch block(not new), no ST changes, no T wave changes. qtC 467 ms - Radiology Interpretation Chest x-ray Status: report reviewed by me Additional comment: no acute cardiopulmonary process. FMR H&P: A/P - Problem List (1) Atypical chest pain Current Visit: Yes Status: Resolved Code(s): R07.89 - OTHER CHEST PAIN (2) HLD (hyperlipidemia) Current Visit: Yes Status: Acute Code(s): E78.5 - HYPERLIPIDEMIA, UNSPECIFIED (3) Diabetes mellitus Current Visit: Yes Status: Chronic Code(s): E11.9 - TYPE 2 DIABETES MELLITUS WITHOUT COMPLICATIONS Qualifiers: Diabetes mellitus type: type 2 Diabetes mellitus assisted insulin use: with assisted use (4) Hypertension Current Visit: Yes Status: Chronic Code(s): I10 - ESSENTIAL (PRIMARY) HYPERTENSION Qualifiers: Hypertension type: essential hypertension Qualified Code(s): I10 - Essential (primary) hypertension - Plan 58 yr old female with atypical chest pain. Atypical chest pain -pleuritic in nature -heart score of 3 for risk factors (2 points) and age (1 point) -EKG unchanged from previous and no evidence of ischemia -trop neg x 2. -stress in AM -received ASA 325 mg in ER -given transient and intermittent nature of pain, unlikely to be related to ACS -last cath in 05/2017 is negative- no hx of CAD -d-dimer neg essentially ruling out PE although nothing in history or signs worriesome for PE -BNP low at 10 dizziness -obtain orthostatic vital signs as symptoms are acute in nature and quickly resolving HTN -cont home meds HLD -cont atorvastatin DM -sliding scale insul -cont home lantus, glipizide,and metformin chronic back pain -no red flags at the moment and patient reports outpatient workup and surgery planned urinary retention -if an issue, will bladder scan and in/out cath however she has been able to void and UA normal. Full code PCP: within [facility] Dispo- obs and likey DC within 1-2 days. History, Physical and plan discussed with Dr. Simon on 12/24. Addendum - Attending - Attending Attestation Date/Time: 12/24/181815 I personally evaluated the patient and discussed the management with Dr. Billingsley I agree with the History, Examination, Assessment and Plan documented above with any addition or exceptions noted below - 58 yr old female with hx of DM, HTN, HLD who presents with chest pain that comes and goes at rest and sometimes while walking. It only lasts seconds and then it comes back randomly. This chest pain has been occurring for about 2 weeks. Pain radiates to neck and left shoulder. Pain described as pins and needles. PMH/PSH/Meds/SH reviewed and agree with resident's documentation. Afebrile VSS. Exam repeated by me and agree with resident's findings. Labs: trop I<0.010 x 2; EKG- NSR and incomplete RBBB. CXR- negative. A/P: 1) Atypical chest pain - Troponins negative; patient with multiple risk factors; last evaluation - cardiac cath in 05/2017 which was negative. Will plan for stress in AM. 2) Dm- continue home medications and monitor accuchecks.
[2018-12-24 14:21] LABS: Bilirubin Negative (Negative); Blood, Urine Negative (Negative); Clarity CLEAR (Clear); Glucose, Urine (Dipstick) 500 mg/dL (Negative); Leukocyte Negative (Negative); Nitrite Negative (Negative); Protein, Urine (Dipstick) Negative (Neg-Trace); Specific Gravity, Urine 1.015 (1.002-1.036); pH, Urine 5.5 (5.0-9.0)
[2018-12-24 14:26] LABS: Troponin I Less than 0.010 ng/mL (< 0.028)
[2018-12-24] MEDS ORDERED: Acetaminophen 325 MG TAB PO PRN ×2 (16:32→16:36)
[2018-12-24] MEDS ORDERED: Ondansetron PF 4 MG/2 ML Vial IVP PRN (16:32)
[2018-12-24] MEDS ORDERED: Ondansetron ODT 4 MG TAB SL PRN (16:32)
[2018-12-24] MEDS ORDERED: Ondansetron ODT 4 MG TAB PO PRN (16:36)
[2018-12-24] MEDS ORDERED: Calcium Carbonate 500 MG ChewTAB PO PRN (16:36)
[2018-12-24] MEDS ORDERED: HumaLOG 300 UNITS/3 ML VIAL SC PRN (16:37)
[2018-12-24] MEDS ORDERED: Dextrose 50% Abboject 50 ML SYRINGE SLOW IVP PRN (16:37)
[2018-12-24] MEDS ORDERED: Dextrose 5% in Water 1,000 ML IV PRN (16:37)
[2018-12-24 16:51] VITALS: BMI 41.2
[2018-12-24] MEDS ORDERED: Enoxaparin Sodium 40 MG/0.4 ML SYRINGE SC SCH (17:00)
[2018-12-24 17:15] LABS: Cardiac Risk 2.8 (Less than 4.5)
[2018-12-24 17:20] LABS: Troponin I Less than 0.010 ng/mL (< 0.028)
[2018-12-24 20:57] LABS: Hemoglobin A1c 8.4 % (4.0-6.0)
[2018-12-24] MEDS ORDERED: Indomethacin 25 mg Capsule PO SCH (21:00)
[2018-12-24] MEDS ORDERED: Atorvastatin Calcium 40 MG TAB PO SCH (21:00)
--- NOTE | 2018-12-25 00:39 | PDOC.EVN ---
Event Note - Event Note Event Note: S: Residents called to because pt has new onset CP. Pt reports she has hx of chronic pain from neck which is in process of planning neurosurgery for. Pain chronically has radiated throughout her body. However tonight she states pain has acutely felt different with focus in substernal region with associated SOB and diaphoresis. No cough. O: Vitals wnl GEN: no acute distress CARD: RRR no murmurs, no reproducible pain. Unchanged on tele monitor PULM: CTAB, no wheeze GI: normal bowel sounds, no TTP A/P: Possible exacerbation of chronic pain vs ACS. trops negx3 since admission but considering reason for admission will workup cp acutely. -troponins/BMP -EKG -Tylenol
[2018-12-25] MEDS ORDERED: Melatonin 3 MG TAB PO SCH (01:00)
[2018-12-25 01:18] LABS: Anion Gap 12 mmol/L (10-20); BUN (Urea Nitrogen) 13 mg/dL (9.8-20.1); Calc. Creatinine Clearance 169 mL/min (70-130); Calcium 8.8 mg/dL (7.8-10.44); Carbon Dioxide 24 mmol/L (22-29); Chloride 103 mmol/L (98-107); Estimated GFR-MDRD Greater than 90; Glucose 144 mg/dL (70-105); Sodium 135 mmol/L (136-145)
[2018-12-25] MEDS: Acetaminophen 500 MG TAB PO PRN ×2 (01:21→15:45)
--- NOTE | 2018-12-25 05:38 | PDOC.FM ---
- Subjective Subjective: Pt states that her pain is improved from last night. She states that she woke up with SOB overnight. She states that she snores and gasps for breath some nights. She states that her dizziness is improved. - Objective MAR Reviewed: Yes Vital Signs & Weight: Vital Signs (12 hours) Temp Pulse Resp BP Pulse Ox 12/25/18 00:10 97.8 F 78 14 124/58 L 95 12/24/18 19:58 98.2 F 85 16 106/57 L 96 Weight Weight 112.491 kg I&O: 12/23/18 12/24/18 12/25/18 06:59 06:59 06:59 Intake Total 720 Balance 720 Result Diagrams: 12/24/18 10:06 12/25/18 00:49 Phys Exam - Physical Examination Constitutional: NAD HEENT: moist MMs Neck: full ROM Respiratory: no wheezing, no rales, clear to auscultation bilateral Cardiovascular: RRR, no significant murmur, no rub Gastrointestinal: soft, non-tender, no distention, positive bowel sounds Musculoskeletal: no edema, pulses present Neurological: moves all 4 limbs Psychiatric: normal affect, A&O x 3 Skin: cap refill <2 seconds Dx/Plan (1) HLD (hyperlipidemia) Code(s): E78.5 - HYPERLIPIDEMIA, UNSPECIFIED Status: Acute (2) Diabetes mellitus Code(s): E11.9 - TYPE 2 DIABETES MELLITUS WITHOUT COMPLICATIONS Status: Chronic Qualifiers: Diabetes mellitus type: type 2 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 (3) Hypertension Code(s): I10 - ESSENTIAL (PRIMARY) HYPERTENSION Status: Chronic Qualifiers: Hypertension type: essential hypertension Qualified Code(s): I10 - Essential (primary) hypertension (4) Atypical chest pain Code(s): R07.89 - OTHER CHEST PAIN Status: Resolved - Plan Plan: This is a 58 yo female with a pmh of HTN, HLD, ND w/o previous invasive tx, IDDM , and morbid obesity who presents with chest pain Atypical chest pain -Pending stress test today -Troponin negative x4 -D-dimer negative -BNP negative -Pending echocardiogram Dizziness -Pending orthostatic vital signs -Pending echo KAREN, undiagnosed -Consider outpt sleep study HTN -Continue home medications, hold beta yoshi for stress HLD -Continue lipitor DM -SSI, achs accuchecks -Continue home lantus, glipizide, and metformin -Consider stopping glipizide outpt Chronic back pain -Consider using naproxen instead of indomethacin Urinary retention -Pt has been voiding without issue Addendum - Attending - Attending Attestation Date/Time: 12/25/18 1312 I personally evaluated the patient and discussed the management with Dr. Hooks I agree with the History, Examination, Assessment and Plan documented above with any addition or exceptions noted below. Serial troponins negative prior most recent Heart Cath Negative 2016,d-dimer negative for echocardiogram and stress testing today. Patient should be cleared for any anticipated Cervical spine surgery if w/u wnl. Patient appear to have KAREN and will encourage further evaluation when dismissed.
[2018-12-25] MEDS: metFORMIN 500 MG TAB PO SCH ×2 (08:31→17:29)
[2018-12-25] MEDS: INSULIN GLARGINE SC SCH ×2 (08:32→12:38)
[2018-12-25] MEDS: PRE FILLED SC SCH ×2 (08:32→12:38)
[2018-12-25] MEDS ORDERED: Hydrochlorothiazide 25 MG TAB PO SCH (09:00)
[2018-12-25] MEDS ORDERED: Indomethacin 25 mg Capsule PO SCH (09:00)
[2018-12-25] MEDS ORDERED: Lisinopril 20 MG TAB PO SCH (09:00)
[2018-12-25] MEDS ORDERED: Enoxaparin Sodium 40 MG/0.4 ML SYRINGE SC SCH (09:00)
[2018-12-25] MEDS ORDERED: Aspirin Chewable 81 MG TAB PO SCH (09:00)
--- NOTE | 2018-12-25 11:32 | NM ---
FCARDIAC SPECT: HISTORY: Atypical chest pain, coronary artery disease, hypertension, diabetes, dyslipidemia. PROTOCOL: Single isotope, stress only. RADIOPHARMACEUTICAL: 29 mCi technetium 99m sestamibi injected intravenously STRESS: Pharmacologic stress with adenosine monitored and interpreted by Dr. Pendleton. FINDINGS: Homogeneous tracer distribution is seen in the myocardial segments on the poststress images. Gated SPECT LVEF: 75% Wall motion exam: Normal IMPRESSION: Normal poststress myocardial perfusion scan.
[2018-12-25 15:49] VITALS: BP 128/60; TEMP 99.2
[2018-12-25] MEDS ORDERED: ADENOSINE 60 MG/20 ML VIAL ONE (17:01)
--- NOTE | 2018-12-26 06:11 | DIS ---
DATE OF ADMISSION: 12/24/2018 DATE OF DISCHARGE: 12/25/2018 ADMITTING ATTENDING: Yasmin Simon MD. DISCHARGE INTENDING: Dale Stiles MD. RESIDENT: Clint Hooks DO. CONSULTS: None. PROCEDURES: 1. Chest x-ray showing no acute cardiopulmonary abnormalities. 2. Nuclear stress test showing normal stress test. 3. Echocardiogram showing normal left ventricular size, EF of 55 % to 60 % and mild left atrial dilation, otherwise normal echocardiogram. PRIMARY DIAGNOSIS: Atypical chest pain, likely due to gastroesophageal reflux disease. SECONDARY DIAGNOSES: 1. Hypertension. 2. Hyperlipidemia. 3. Diabetes type 2, insulin dependent. DISCHARGE MEDICATIONS: 1. Aspirin 81 mg p.o. daily. 2. Atorvastatin 40 mg p.o. at bedtime. 3. Glipizide 10 mg p.o. b.i.d. 4. Hydrochlorothiazide 25 mg p.o. b.i.d. 5. Indomethacin 50 mg p.o. daily. 6. Lactulose 10 grams p.o. daily p.r.n. constipation. 7. Lisinopril 20 mg p.o. daily. 8. Metformin 1000 mg p.o. b.i.d. 9. Omeprazole 40 mg p.o. daily. 10. Insulin glargine 35 units subcu daily. 11. Metoprolol 50 mg p.o. b.i.d. DISCONTINUED MEDICATIONS: None. BRIEF HISTORY OF PRESENT ILLNESS/HOSPITAL COURSE: This is a 58-year-old female with past medical history of CAD, who presents with chest pain, comes and goes while at rest and sometimes at walking, states that it only last for few seconds and then leaves. She describes it as sharp and has been concurring for the last 2 weeks. The patient has a history of an PA in 1999, had a catheterization at that time, but no stents placed. The patient reports 3 caths in total with no stents. The patient was admitted into the hospital. Stress test was performed and was found to be negative. Echocardiogram was done due to her dizziness and cardiac history was found to be normal. The patient was discharged in stable condition. DISPOSITION: Stable. DISCHARGE INSTRUCTIONS: 1. Location: [facility]. 2. Diet: Heart healthy, diabetic. 3. Activities: As tolerated. 4. Follow up with the long term physician. The patient likely has undiagnosed KAREN and would benefit from a sleep study and likely CPAP. This should be done outpatient quickly as the patient currently does not have any signs of right heart failure. Job ID: [id number]
--- NOTE | 2018-12-29 17:38 | EKG ---
Test Reason : STAT Blood Pressure : / mmHG Vent. Rate : 072 BPM Atrial Rate : 072 BPM P-R Int : 176 ms QRS Dur : 114 ms QT Int : 428 ms P-R-T Axes : 030 022 056 degrees QTc Int : 468 ms Normal sinus rhythm Incomplete right bundle branch block Cannot rule out Anterior infarct , age undetermined Abnormal ECG When compared with ECG of 24-DEC-2018 09:49, (Unconfirmed) No significant change was found Confirmed by JARET LIAO (2) on 12/29/2018 5:37:38 PM Referred By: MARLEY DICK Confirmed By:JARET LIAO
== END 2018-12-25 19:32 ==
LOC: ERS 09:42 → ERHOLD 11:21 → 2SW 15:58
PROVIDERS: ADMIT Family Medicine; ATTEND Family Medicine
DX: R07.89 Other chest pain (principal); I10 Essential (primary) hypertension; E78.5 Hyperlipidemia, unspecified; E11.9 Type 2 diabetes mellitus without complications; I25.10 Atherosclerotic heart disease of native coronary artery without angina pectoris; I25.2 Old myocardial infarction; F17.210 Nicotine dependence, cigarettes, uncomplicated; G89.29 Other chronic pain; M54.9 Dorsalgia, unspecified; R33.9 Retention of urine, unspecified; R42 Dizziness and giddiness; E66.01 Morbid (severe) obesity due to excess calories; Z68.41 Body mass index [BMI] 40.0-44.9, adult; Z79.4 Long term (current) use of insulin; Z79.82 Long term (current) use of aspirin; Z79.899 Other long term (current) drug therapy
CPT/HCPCS: 36415; 36416; 71045; 78452; 80048; 80053; 80061; 81003; 83036; 83880; 84484; 85025; 85379; 87086; 93005; 93010; 93017; 93306; 96372; A9500; G0378; J0153; J1650; J1825

== ENCOUNTER 2019-03-18 08:37 | Outpatient (CLI) | payer OTHER ==
--- NOTE | 2019-03-18 10:33 | MMO ---
Bilateral MAMMO Bilat Screen [facility]. CLINICAL HISTORY: Patient is 59 years old and is seen for screening. The patient has the following family history of breast cancer: maternal aunt, malignant (generic); mother, at age 55, malignant (generic) and maternal grandmother, malignant (generic). The patient has no personal history of cancer. VIEWS: The views performed were: bilateral craniocaudal and bilateral mediolateral oblique. FILMS COMPARED: The present examination has been compared to prior imaging studies performed at [facility] on 08/04/2014, 09/05/2015 and 02/01/2017. This study has been interpreted with the assistance of computer-aided detection. MAMMOGRAM FINDINGS: There are scattered fibroglandular densities. Finding 1: There are stable benign appearing calcifications seen in both breasts. Finding 2: There are stable intramammary lymph nodes seen in both breasts. There are no suspicious masses, suspicious calcifications, or new areas of architectural distortion. IMPRESSION: THERE IS NO MAMMOGRAPHIC EVIDENCE OF MALIGNANCY. A ROUTINE FOLLOW-UP MAMMOGRAM IN 1 YEAR IS RECOMMENDED. ACR BI-RADS Category 2 - Benign finding MAMMOGRAPHY NOTE: 1. A negative mammogram report should not delay a biopsy if a dominant of clinically suspicious mass is present. 2. Approximately 10% to 15% of breast cancers are not detected by mammography. 3. Adenosis and dense breasts may obscure an underlying neoplasm.
== END 2019-03-18 08:38 | disposition home or self-care (01) ==
LOC: SCSMAMMO 08:37
PROVIDERS: ATTEND Family Medicine
DX: Z12.31 Encounter for screening mammogram for malignant neoplasm of breast (principal); Z80.3 Family history of malignant neoplasm of breast
CPT/HCPCS: 77067

== ENCOUNTER 2019-04-01 16:05 | Emergency (ER) | payer OTHER ==
--- NOTE | 2019-04-01 18:15 | RAD ---
FOUR VIEWS RIGHT KNEE: 04/01/19 HISTORY: Right knee injury while walking. Reported radiographs obtained while patient was in shelter showed possi ble dislocation. FINDINGS: There is tricompartment osteophytosis. There is a corticated calcific/ossific density superior to the patella. This does appear well corticated and does not represent an acute finding. This could potent ially represent a remote avulsion type injury, but this is in an atypical place for an avulsion injur y and could be related to intra-articular loose body within the suprapatellar region. There is also a dditional calcification in the suprapatellar location. There is a moderate sized joint effusion prese nt. No acute fracture or dislocation is seen. No joint space narrowing is appreciated. IMPRESSION: 1. Moderate sized joint effusion. 2. Osteoarthritis without evidence of an acute osseous abnormality. 3. Calcific/ossific density superior and slightly lateral to the superior aspect of the patella which may represent calcification or loose body within the joint. This is in an atypical location fo r an avulsion type injury, but if this does represent an avulsion injury, this is certainly more maciel te in origin as there is corticated margins. Given moderate sized joint effusion and if there is conc katlin for internal derangement, MRI of the right knee is recommended for further evaluation. POS: [facility]
[2019-04-01] MEDS ORDERED: Ketorolac Tromethamine 30 MG/ML VIAL ONE (20:15)
== END 2019-04-01 20:40 | disposition home or self-care (01) ==
LOC: ERS 16:05
DX: M25.461 Effusion, right knee (principal); M25.562 Pain in left knee
CPT/HCPCS: 96372; J1885